=== PATIENT | female | born 1950 | race Caucasian/White ===

== ENCOUNTER 2019-04-19 06:35 | Day surgery (SDC) | payer MEDICARE, BC ==
[~2019-04-19 06:35] MED LIST: Buffered Lidocaine 1% SYRIN* 1 ML/SYRINGE INTRADERM ONE; Lactated Ringers 1000 ML Bag* 1,000 ML IV SCH
[2019-04-19] MEDS ORDERED: Midazolam* 1 MG/ML 2 ML VIAL (2 MG) ONE (08:24)
[2019-04-19] MEDS ORDERED: Lidocaine 2% PF * 5 ML VIAL ONE (08:25)
[2019-04-19] MEDS ORDERED: Naloxone* 0.4 MG/ML 1 ML VIAL IV PRN (08:44)
[2019-04-19] MEDS ORDERED: Acetaminophen TAB* 325 MG PO PRN (08:44)
[2019-04-19 09:40] VITALS: BP 119/63
--- NOTE | 2019-04-19 22:35 | PRO ---
CC: Dr. Latisha Dhillon* ESOPHAGOGASTRODUODENOSCOPY REPORT: DATE OF SERVICE: 04/19/19 INDICATION FOR PROCEDURE: Dysphagia. PROCEDURE PERFORMED: Complete esophagogastroduodenoscopy with biopsies. MEDICATIONS GIVEN: Please see anesthesia record. DESCRIPTION OF PROCEDURE: After the EGD procedure including the risks, benefits , and alternatives with the risks not limited to perforation, surgery, missed lesions, and/or were explained to the patient, written informed consent was obtained, IV medication was given, and a bite block was placed between the teeth. The adult Olympus gastroscope was then inserted into the patient's oropharynx, into the tubular esophagus. Tubular esophagus had a 4 to 5 cm hiatal hernia but an intact Z-line. Biopsies were taken to rule out microscopic reflux disease. The scope was advanced through the lower esophageal sphincter into the stomach. There was some retained food within the stomach that limited about 20% to 40% of the views. However, after moving things around, I feel like I was able to clear the majority of the dubois decently. There was mild gastritis, a biopsy was taken for ILIR testing. On retroflexion, the aforementioned hiatal hernia was visualized. The scope was then advanced through the widely patent pylorus, into the duodenal bulb, C loop , distal duodenum. There was mild duodenitis. Biopsies were taken to rule out villous blunting. The scope was then removed from the patient. She tolerated the procedure well. She returned to the recovery room in stable condition. IMPRESSION: 1. Complete esophagogastroduodenoscopy with biopsies. 2. A 4 to 5 cm hiatal hernia similar to prior. 3. Retained food in the stomach yielding suboptimal views with mild gastritis. 4. Mild duodenitis. RECOMMENDATIONS: She is only on 20 mg of PPI therapy at this time. We will plan on potentially increasing this depending on the biopsies. She did eat a very large dinner right before midnight prior to being n.p.o. They consisted of oakley and lots of other things. It is unclear if this retained food is from the delayed meal or if it truly could be evidence of gastroparesis. A gastric emptying study could be considered but may be difficult to interpret in the setting of the hydrocodone usage. I think a reasonable plan will be to try her on a higher dose of PPI therapy. If she is not doing well afterwards we could consider a brief trial of Reglan understanding the side effects and discussing them in the office. I will follow up on the biopsy results and we will determine the plan of care thereafter. [id number]/[facility] #: [id number] TOY
== END 2019-04-19 09:41 | disposition home or self-care (01) ==
LOC: OR 06:35
PROVIDERS: ATTEND Internal Medicine Gastroenterology
DX: R13.14 Dysphagia, pharyngoesophageal phase (principal); K29.80 Duodenitis without bleeding; K44.9 Diaphragmatic hernia without obstruction or gangrene; R10.13 Epigastric pain; R63.4 Abnormal weight loss; I10 Essential (primary) hypertension; Z85.3 Personal history of malignant neoplasm of breast; N81.10 Cystocele, unspecified; N81.6 Rectocele
CPT/HCPCS: 87077; 88305; J2250